=== PATIENT | male | born 1960 | race Caucasian/White ===

== ENCOUNTER 2017-09-10 17:47 | Observation (INO) ==
--- NOTE | 2017-09-10 18:44 | Emergency Department Note ---
Disposition Clinical Impression: Weakness, Hypoxia Lower extremity weakness Qualifiers: Laterality: bilateral Qualified Code(s): R29.898 - Other symptoms and signs involving the musculoskeletal system Disposition: Admitted As Inpatient Condition: Fair Time of Disposition: 22:00 General Adult HPI - General Chief complaint: ED General Medical Stated complaint: general weakness Time Seen by Provider: 09/10/17 17:52 Source: patient, family, EMS Mode of arrival: EMS Limitations: no limitations Nursing Notes Reviewed: Yes Vital Signs Reviewed: Yes - History of Present Illness HPI Narrative: 56-year-old male reported history of neuropathy in the lower extremities presents an emergency department via EMS for generalized weakness. States he has been feeling weak over the past 2 days. He denies any pain other than chronic back pain. He admits to falling 3 times total, once yesterday and twice today. His most recent one was prior to arrival around 1730 when he was outside doing yard work. It was hot outside today as well as yesterday when something similar occurred as well. He felt weak in the legs due to his neuropathy and tripped over some 2x4s falling off the porch roughly a foot- high and remember striking the back of his head. He is reporting some neck pain. Denies any loss of consciousness. Denies anticoagulant use. Denies any prodromal symptoms. Denies any lightheadedness, chest pain, shortness of breath or headache. He denies any dizziness or the room spinning. He reports having the flu earlier this year but also having the vaccination. He denies any fevers, cough or recent illness. Denies any abdominal pain, nausea or vomiting. Denies history of stroke. Reports history of diabetes that he beats. He does not take anything for. He also has high blood pressure. He is a natural path but takes oxycodone for his back. Denies history of cardiac ischemic disease. Pain Scale: 0 - Related Data Previous Rx's Medication Instructions Recorded Naproxen [Naprosyn] 500 mg PO BID #14 tablet 12/28/15 Allergies Allergy/AdvReac Type Severity Reaction Status Date / Time Penicillins Allergy Hives Verified 09/10/17 17:55 codeine AdvReac Gastrointestinal Verified 09/10/17 17:55 Upset All systems ED: reviewed and negative except as stated. Review of Systems: As Per HPI Constitutional: Reports: weakness. Denies: fever, chills ENT ED: Denies: congestion Cardiovascular: Denies: chest pain Respiratory: Denies: cough, dyspnea Gastrointestinal: Denies: abdominal pain Musculoskeletal: Reports: neck pain. Denies: back pain Neurological: Reports: weakness, numbness. Denies: headache Past Medical History - Past Medical History Attestation: Yes The following information was validated with the patient. Source: patient Medical history: Reports: GERD, hypertension Psychiatric history: Reports: no psych history - Social History Smoking Status: Never smoker Smokeless Tobacco Status: No Alcohol use: Reports: none Drug use: Reports: none Physical Exam - General Limitations: no limitations General appearance: alert, in no apparent distress - Head Head exam: atraumatic, normocephalic, normal inspection - Eye Eye exam: Present: normal appearance, PERRL, EOMI. Absent: nystagmus - ENT ENT exam: normal exam, normal oropharynx, mucous membranes moist - Neck Neck exam: Present: normal inspection, full ROM, trachea midline, tenderness. Absent: meningismus - Expanded Neck Exam Neck exam focused ED: Present: midline tenderness (Mid cervical spine) - Chest Chest inspection: Present: normal inspection, symmetric chest wall rise. Absent : tenderness - Respiratory Respiratory exam: Present: normal lung sounds bilaterally. Absent: respiratory distress, wheezes - Cardiovascular Cardiovascular exam: Present: regular rate, normal rhythm, normal heart sounds. Absent: systolic murmur, diastolic murmur - Abdominal Exam Abdominal exam: Present: soft, Non-Tender, normal bowel sounds. Absent: tenderness, distention, guarding, rebound, rigidity - Extremities Exam Extremities exam: Present: normal inspection, full ROM, normal capillary refill. Absent: tenderness, pedal edema - Neurological Exam Neurological exam: Present: alert, oriented X3, other (He has a hard time lifting his legs off the batterers arms off the bed. When I hold his arms up he is able to hold it slightly and interest down but does not slam on the bed. When I asked him to passively lift his arm he is unable to lift it greater than a few inches against gravity) - Expanded Neurological Exam Patient oriented to: Present: person, place, time Speech: Present: fluid speech Cranial nerves: EOM function (II, III, IV, ): Normal, facial sensation (V): Normal, facial palsy (VII): Normal, gag reflex (IX): Normal, spinal accessory function (XI): Normal, tongue deviation (XII): Normal Motor strength - LUE: 5/5 Motor strength - RUE: 5/5 Motor strength - LLE: 4/5 Motor strength - RLE: 4/5 DTR: patellar (L): 1+, patellar (R): 1+, Achilles tendon (L): 1+, Achilles tendon (R): 1+ Coma Scale Eye Opening: Spontaneous Coma Scale Motor Response: Obeys Commands Coma Scale Verbal Response: Oriented Coma Scale Total: 15 - Psychiatric Psychiatric exam: Present: flat affect - Skin Skin exam: Present: warm, dry, intact, normal color. Absent: rash, cyanosis, diaphoresis Course Course Narrative: Patient appears in no acute distress. He does appears slightly weak but this is not anything new. Sensation is normal down to his knees. He contributes sensation to his baseline neuropathy. He is able to wiggle his toes and then his knee without significant strength. He can lift his arms up but it will drop slowly to the table. He is awake alert and oriented. Heart is regular rate and rhythm. No murmurs auscultated. No murmurs with Valsalva maneuver. He reports some neck discomfort after the fall. He denies it anticoagulants used. At this time will obtain images of head and his neck. Will check some basic labs including troponin EKG. Will also obtain influenza swap. He does not report any recent viral illness. Consideration for possible Guillian Fisher Syndrome. Weak in bilateral lower extremities without true focal neuro deficit or distribution. CVA/TIA appears less likely. - Reevaluation(s) Reevaluation #1: Patient is seen at bedside moving his lower extremities spontaneously. However when asked upon examination he displays some extreme difficulty. He has gradually improved. This is less likely to be Guillian Fisher. Patient was initially hypoxic and require oxygen supplementation here. He denies any known lung disease. We absolutely titrated him off a he remains 93% on room air rest before he was initially 84%. Concern for Guillian Fisher less likely. We did initially discuss lumbar puncture to evaluated but patient refused. Review of his labs fairly unremarkable. Influenza negative. Mild leukocytosis. Troponin less than 0.03. CT of the chest to evaluate for pulmonary embolism to explain the hypoxia was performed it was unremarkable. There were some lung nodules that was made aware to the patient. EKG did not reveal any abnormal intervals, delta waves, Brugada pattern to suggest cardiac syncope. However given his weakness he will require admission for further evaluation and possibly further imaging. He continues to gradually improve. He has diminished reflexes bilaterally to lower extremities which are also symmetrical. Patient will be admitted for further monitoring and observation. He initially started the day with yardwork and now is unable to walk without significant difficulty. Impression is weakness, hypoxia and possible further workup for possible syncope. Time: 19:33 - Consultations Consultation #1: Patient accepted by on-call HOSPITALIST. No further orders at this time. Vital Signs Temperature 98.1 F 09/10/17 17:50 Pulse Rate 94 09/10/17 17:50 Respiratory Rate 16 09/10/17 17:50 Blood Pressure 137/82 09/10/17 17:50 O2 Sat by Pulse Oximetry 97 09/10/17 17:50 Temperature 97.8 F 09/10/17 23:55 Pulse Rate 75 09/10/17 23:55 Respiratory Rate 18 09/10/17 23:55 Blood Pressure 133/72 09/10/17 23:56 O2 Sat by Pulse Oximetry 96 09/10/17 23:55 Oxygen Delivery Oxygen Delivery Room Air Medical Decision Making - MDM Narrative Medical decision making narrative: Patient was discussed with my attending physician who agrees with ED management and final disposition. They independently evaluated the patient. Please refer to their attestation to this encounter for additional information. This note was generated by [employer] voice recognition software and as a result grammatical or spelling errors may occur using this program. - Medical Records Medical records reviewed: Yes I reviewed the patient's medical records. - Lab Data Lab results reviewed: Yes I reviewed the patient's lab results. Result diagrams: 09/10/17 18:36 09/10/17 18:36 Lab Results 09/10/17 09/10/17 09/10/17 Range/Units 18:36 18:36 19:57 WBC 12.0 H (4.3-11.1) K/mcL RBC 5.11 (4.19-5.50) M/mcL Hgb 15.0 (12.9-16.9) g/dL Hct 44.7 (37.5-50.1) % MCV 87.5 (83.0-100.0) fL MCH 29.4 (28.0-33.3) pg MCHC 33.6 (31.6-35.5) g/dL RDW 13.7 (11.5-14.5) % Plt Count 290 (140-400) K/mcL MPV 8.8 L (9.4-12.4) fL Immature Gran % 0.5 (0-4) % Seg Neutrophils % 67.7 % Lymphocytes % 21.7 % Monocytes % 7.2 % Eosinophils % 2.4 % Basophils % 0.5 % Neutrophils # 8.1 (1.6-8.9) K/mcL Lymphocytes # 2.6 (0.6-4.6) K/mcL Monocytes # 0.9 (0.0-1.3) K/mcL Eosinophils # 0.3 (0.0-0.6) K/mcL Basophils # 0.1 (0.0-0.2) K/mcL Sodium 143 (136-145) mEq/L Potassium 3.8 (3.5-5.1) mEq/L Chloride 107 (98-107) mEq/L Carbon Dioxide 28 (23-29) mEq/L BUN 29 H (6-20) mg/dL Creatinine 1.03 (0.70-1.30) mg/dL Est GFR ( Amer) > 60 (> 60) Est GFR (Non-Af Amer) > 60 (> 60) BUN/Creatinine Ratio 28 H (6-26) Glucose 121 H (70-105) mg/dL Calculated Osmolality 303 H (280-300) Calcium 9.6 (8.6-10.3) mg/dL Total Bilirubin 0.4 (0.3-1.0) mg/dL AST 33 (13-39) Units/L ALT 51 (7-52) Units/L Alkaline Phosphatase 63 (34-104) Units/L Troponin I < 0.03 (< 0.04) ng/mL Serum Total Protein 6.4 (6.4-8.9) g/dL Albumin 4.0 (3.5-5.7) g/dL Globulin 2.4 (2.4-3.5) g/dL Albumin/Globulin Ratio 1.7 (1.1-2.2) Urine Color Yellow (Yellow) Urine Clarity Clear (Clear) Urine pH 8.0 (5.0-8.0) pH Units Ur Specific [place] 1.030 H (1.010-1.025) Urine Protein Trace (Neg-Trace) mg/dL Urine Glucose (UA) Normal (Normal) mg/dL Urine Ketones Trace H (Negative) mg/dL Urine Blood Negative (Negative) Urine Nitrite Negative (Negative) Urine Bilirubin Negative (Negative) Urine Urobilinogen Normal (Normal) mg/dL Ur Leukocyte Esterase Negative (Negative) Urine Microscopic RBC 3-5 H (0-3) per hpf Urine Microscopic WBC 0-3 (0-3) per hpf Ur Squamous Epith Cells Moderate H (None-Few) per lpf Urine Bacteria None Seen (None-Few) per hpf Hyaline Casts None Seen (None-Few) per lpf Ur Culture Indicated? NO (NO) - Radiology Data Radiology results reviewed: Yes I reviewed the patient's radiology results. Chest X-Ray 09/10/17 17:56 IMPRESSION: Negative portable study. D/ / Jaquelin Watts Cha, MD / Jaquelin Watts Cha, MD Interpreting Provider: Jaquelin Watts Cha, MD Cervical Spine CT 09/10/17 18:27 IMPRESSION: No acute abnormality of the cervical spine. D/ / Jose L Mark MD / Jose L Mark MD Interpreting Provider: Jose L Mark MD Head CT 09/10/17 18:27 IMPRESSION: No acute intracranial abnormality. D/ / Jose L Mark MD / Jose L Mark MD Interpreting Provider: Jose L Mark MD Chest CTA 09/10/17 20:19 IMPRESSION: No evidence of pulmonary embolism or acute pulmonary abnormality. Mild emphysematous changes. Scattered noncalcified pulmonary nodules measure up to 3 mm. No required follow-up per guidelines below. RECOMMENDATIONS: Fleischner Society guidelines for follow-up and management of incidentally detected pulmonary nodules: Multiple Solid Nodules: Nodule size less than 6 mm In a low-risk patient, no routine follow-up. In a high-risk patient, optional CT at 12 months. - Low risk patients include individuals with minimal or absent history of smoking and other known risk factors. - High risk patients include individuals with a history or smoking or known risk factors. Radiology 2017 http://pubs.rsna.org/doi/full/10.1148/[email or web address] D/ / 09/10/2017 21:54:23 Jerry Hardy MD / mya Interpreting Provider: Jerry Hardy MD - EKG Data EKG #1 EKG attestation: Yes I reviewed and interpreted this EKG. Attestation Statement - Attestation Attestation: I, Jules Guadarrama, examined this patient and my medical decision-making was reviewed with the [employer] PR[employer] OPERATOR/PA/Advanced Practice Nurse/Resident Physician. I agree with the documented findings, disposition and treatment plan as described except to the extent set forth below. 56-year-old male presents emergency Department with generalized weakness. Patient states that this is occurred twice over the past few days. He states both times it is occurred while he was outside working in the yard. Patient does report having been in the sun, feeling overheated. He denied lateralization of his weakness. No history of stroke. Patient denied chest pain. He was mildly short of breath on initial evaluation and was satting 84% with EMS per the . Patient's O2 saturation has improved with observation emergency department. Patient states he initially had generalized weakness and was unable to lift the bilateral arms or legs. Patient is now moving all extremities after observation in the emergency department. Initial EKG did not show evidence of acute STEMI and had a normal sinus rhythm with a rate of 89. CTA of the chest was negative for PE. CT did show scattered noncalcified pulmonary nodules about which the patient was counseled. Patient comfortable with the plan for admission to the hospital for further evaluation of his weakness. Patient denies recent tick bite or recent illness. I discussed the possibility of pathology such as Guillain-Fisher and recommended a lumbar puncture to be performed. After discussion of risks and benefits the patient refused lumbar puncture. Patient will be admitted for further care and evaluation.
[2017-09-10 18:58] LABS: Basophils # 0.1 K/mcL (0.0-0.2); Basophils % 0.5 %; Eosinophils # 0.3 K/mcL (0.0-0.6); Eosinophils % 2.4 %; Hematocrit 44.7 % (37.5-50.1); Immature Granulocytes % 0.5 % (0-4); Lymphocytes # 2.6 K/mcL (0.6-4.6); Lymphocytes % 21.7 %; Mean Corpuscular HGB Conc 33.6 g/dL (31.6-35.5); Mean Corpuscular Hemoglobin 29.4 pg (28.0-33.3); Mean Corpuscular Volume 87.5 fL (83.0-100.0); Mean Platelet Volume 8.8 fL (9.4-12.4); Monocytes # 0.9 K/mcL (0.0-1.3); Monocytes % 7.2 %; Neutrophils # 8.1 K/mcL (1.6-8.9); Platelet Count 290 K/mcL (140-400); Red Blood Count 5.11 M/mcL (4.19-5.50); Red Cell Distribution Width 13.7 % (11.5-14.5); Segmented Neutrophils % 67.7 %
[2017-09-10 19:13] LABS: Alanine Aminotransferase 51 Units/L (7-52); Albumin/Globulin Ratio 1.7 (1.1-2.2); Alkaline Phosphatase 63 Units/L (34-104); Aspartate Amino Transferase 33 Units/L (13-39); BUN/Creatinine Ratio 28 (6-26); Bilirubin,Total 0.4 mg/dL (0.3-1.0); Blood Urea Nitrogen 29 mg/dL (6-20); Calcium 9.6 mg/dL (8.6-10.3); Carbon Dioxide 28 mEq/L (23-29); Chloride 107 mEq/L (98-107); Globulin 2.4 g/dL (2.4-3.5); Glucose 121 mg/dL (70-105); Osmolality,Calculated 303 (280-300); Potassium 3.8 mEq/L (3.5-5.1); Sodium 143 mEq/L (136-145); Total Protein 6.4 g/dL (6.4-8.9); Troponin I < 0.03 ng/mL (< 0.04); eGFR For African Americans > 60 (> 60); eGFR For Non-African Americans > 60 (> 60)
[2017-09-10 20:05] LABS: Bilirubin,Urine Negative (Negative); Blood,Urine Negative (Negative); Clarity,Urine Clear (Clear); Color,Urine Yellow (Yellow); Glucose,Urine (UA) Normal (Normal); Ketones,Urine Trace mg/dL (Negative); Leukocyte Esterase,Urine Negative (Negative); Nitrite,Urine Negative (Negative); Protein,Urine Trace mg/dL (Neg-Trace); Urobilinogen,Urine Normal (Normal)
[2017-09-10 20:07] LABS: Bacteria,Urine None Seen per hpf (None-Few); Hyaline Casts,Urine None Seen per lpf (None-Few); Squamous Epithelial Cell,Urine Moderate per lpf (None-Few); WBC,Urine 0-3 per hpf (0-3)
[2017-09-10] MEDS ORDERED: Isovue-370 500 ML INFUS..BTL IV ONE (20:19)
[2017-09-10] MEDS ORDERED: *HR* OxyCODONE Immed Rel 5 MG TABLET PO ONE (20:54)
[2017-09-10] MEDS ORDERED: Aspirin 81 MG TAB.CHEW PO ONE (22:50)
[2017-09-10] MEDS ORDERED: 0.9 % Sodium Chloride 1,000 ML IVC ONE (22:54)
[2017-09-11] MEDS ORDERED: Dextrose Gel 15 GM/37.5 ML TUBE PO PRN ×2 (00:24)
[2017-09-11] MEDS ORDERED: D5% in Water 1,000 ML IVC PRN (00:24)
[2017-09-11] MEDS ORDERED: *HR* Dextrose 50 % in Water (Syg) 50 ML SYRINGE IVP PRN (00:24)
[2017-09-11] MEDS ORDERED: traMADol 50 MG TABLET PO PRN (00:27)
[2017-09-11] MEDS ORDERED: Acetaminophen 325 MG TABLET PO PRN (00:27)
[2017-09-11] MEDS ORDERED: Ibuprofen 400 MG TABLET PO PRN (00:27)
[2017-09-11] MEDS ORDERED: Naloxone 0.4 MG/ML INJ IVP PRN (00:27)
[2017-09-11] MEDS ORDERED: 0.9 % Sodium Chloride 1,000 ML IVC SCH ×2 (00:30→01:30)
--- NOTE | 2017-09-11 01:35 | Internal Med History&Physical ---
Date of Encounter: 09/10/17 Time of Encounter: 23:47 Internal Medicine - H&P: HPI Chief complaint: "I couldn't get myself up" Admitted From: Emergency Dept Plans for Post Hospital Care: Home History of present illness: Mr. Peraza is a 56 year old male who presented to ED today with generalized weakness, including difficulty getting up to walk. He states that weakness started 2 days ago after he was outside in the heat the last 2 days burning trash. He had 2 near syncopal episodes. He thinks he may not have been drinking much fluids. He states: "maybe its time for me to stop doing all this hard work because I'm almost 57." He states that he is feeling better than when he came to ED. I ambulated the patient across the room, and he was not having any trouble at this time. There are no focal neurologic deficits. He states that the takes many "natural" supplements. He denies any cardiac history. Mother did have OK and CAD at older age. He has history of BLE neuropathy from previously uncontrolled Type II DM. He presently only takes cinnamon and follows diabetic diet for blood glucose control. At this time, he denies headache, chest pain, SOB, abdominal pain, nausea, vomiting, changes in bladder, changes in bowel, focal weakness, difficulty ambulating. I was asked to admit patient for observation for syncope workup. Past Med Surg Social Fam HX - Past Medical History Attestation: Yes The following information was validated with the patient. Medical history: diabetes, GERD, hyperlipidemia, hypertension, other (Chronic Lower Back Pain) Psychiatric history: no psych history - Past Surgical History Surgical History: non-contributory - Social History Smoking Status: Never smoker Smokeless Tobacco Status: No Alcohol use: none Drug use: none - Family History Mother Hx Family Cardiac Disorders: Yes (stents) Father Age at : 30 Cause of : brain bleed - Additional Family History Additional family history: Family history verified with patient. Internal Medicine - H&P: Meds Naproxen [Naprosyn] 500 mg PO BID #14 tablet 12/28/15 [Rx] Docusate Sodium [Dulcolax Stool Softener] 100 mg PO DAILY 09/11/17 [History] Ezetimibe [Zetia] 10 mg PO DAILY 09/11/17 [History] Furosemide [Lasix] 40 mg PO DAILY 09/11/17 [History] Lisinopril-HCTZ 20-12.5 [Prinzide 20-12.5] 1 each PO BID 09/11/17 [History] Omeprazole [PriLOSEC] 20 mg PO DAILY 09/11/17 [History] OxyCODONE Immed Rel [Roxicodone 5 MG] 5 mg PO Q4HR PRN 09/11/17 [History] Potassium Chloride [Klor-Con 10] 20 meq PO DAILY 09/11/17 [History] Tamsulosin HCl [Flomax] 0.4 mg PO DAILY 09/11/17 [History] amLODIPine [Norvasc] 5 mg PO DAILY 09/11/17 [History] diazePAM [Valium] 10 mg PO TID 09/11/17 [History] 3 Allergy/AdvReac Type Severity Reaction Status Date / Time Penicillins Allergy Hives Verified 09/10/17 17:55 codeine AdvReac Gastrointestinal Verified 09/10/17 17:55 Upset All Systems PM: A 10-system review of systems was performed and is negative for pertinent findings except as documented above in the HPI. - Constitutional Vitals: Temp Pulse Resp BP Pulse Ox 97.8 F 75 18 133/72 96 09/10/17 23:55 09/10/17 23:55 09/10/17 23:55 09/10/17 23:56 09/10/17 23:55 General appearance: Present: cooperative, A&O X 3, pleasant, no acute distress, obese, answers questions appropriately - Head Head exam: Present: atraumatic, normal inspection, normocephalic - Eye Eye exam: Present: EOMI, normal appearance, PERRL. Absent: conjunctival injection, nystagmus, scleral icterus - ENT ENT exam: Present: mucous membranes moist, normal external ear exam, normal oropharynx - Neck Neck exam general surgery: Present: supple, trachea midline. Absent: lymphadenopathy, tenderness, thyromegaly - Respiratory Respiratory exam: Present: CTAB. Absent: accessory muscle use, rales, rhonchi, wheezes Additional comments: Normal WOB - Cardiovascular Cardiovascular exam: Present: RRR, +S1, +S2. Absent: diastolic murmur, gallop, rubs, systolic murmur Additional comments: No BLE edema - GI/Abdominal GI/Abdominal exam: Present: normal bowel sounds, soft. Absent: distended, hepatomegaly, mass, splenomegaly, tenderness - Neurological Exam Neurological exam: Present: alert, CN II-XII intact, normal gait, oriented X3, no focal deficits, strengths equal and symetr throughout. Absent: motor sensory deficit, facial droop, speech deficit - Psychiatric Psychiatric exam: Present: normal affect, normal mood. Absent: agitated, anxious, depressed - Skin Skin exam: Present: dry, intact, warm. Absent: cyanosis, rash Internal Med - H&P Results - Labs CBC & Chem 7: 09/10/17 18:36 09/10/17 18:36 - Assessment and plan (1) Near syncope Current Visit: Yes Status: Acute Assessment and plan: Likely secondary to heat exhaustion/dehydration. Cardiac workup in ED negative. No focal neurological deficits at this time. He is already up and able to walk in room now. We will admit for observation. Will continue to hydrate gently with IVF for dehydration. Recheck labs in AM. Will order ECHO and carotid U/S for AM. He states that he takes alot of "natural" supplements; will obtain list of these and evaluate drug effects. Will perform neurochecks Q4H, and consider MRI brain if he starts having neurological symptoms. He does have BLE neuropathy, but has been better recently with regard to this. (2) Heat causing syncope Current Visit: Yes Status: Acute Assessment and plan: Management as per above. Qualifiers: Encounter type: initial encounter Qualified Code(s): T67.1XXA - Heat syncope, initial encounter (3) Dehydration Current Visit: Yes Status: Acute Assessment and plan: Management as per above. (4) Generalized weakness Current Visit: Yes Status: Acute Assessment and plan: Management as per above. PT/OT have been consulted. (5) Hypoxemia Current Visit: Yes Status: Resolved Assessment and plan: Had low O2 saturation of 84% in ED. Patient has no respiratory history. No SOB. Continue supplemental O2 for now; wean as tolerated to RA. (6) HTN (hypertension) Current Visit: Yes Status: Chronic Assessment and plan: Continue home medications. Qualifiers: Hypertension type: essential hypertension Qualified Code(s): I10 - Essential (primary) hypertension (7) HLD (hyperlipidemia) Current Visit: Yes Status: Chronic Assessment and plan: Continue home medications. Qualifiers: Hyperlipidemia type: mixed hyperlipidemia Qualified Code(s): E78.2 - Mixed hyperlipidemia (8) GERD (gastroesophageal reflux disease) Current Visit: Yes Status: Chronic Assessment and plan: Continue home medications. Qualifiers: Esophagitis presence: esophagitis presence not specified Qualified Code(s) : K21.9 - Gastro-esophageal reflux disease without esophagitis (9) Chronic lower back pain Current Visit: Yes Status: Chronic Assessment and plan: Continue home pain medications. Qualifiers: Back pain laterality: unspecified Sciatica presence: unspecified whether sciatica present Qualified Code(s): M54.5 - Low back pain; G89.29 - Other chronic pain (10) Type 2 diabetes mellitus with diabetic polyneuropathy Current Visit: Yes Status: Chronic Assessment and plan: Patient reportedly only takes cinnamon for his DM. Blood glucose in ED borderline normal. Has long-standing BLE neuropathy. Will start accuchecks and low dose SSI QID AC/HS for now, but if blood glucose continues to look good , we can discontinue these orders. Qualifiers: Diabetes mellitus assisted insulin use: without assisted use Qualified Code(s): E11.42 - Type 2 diabetes mellitus with diabetic polyneuropathy (11) DVT prophylaxis Current Visit: Yes Status: Acute Assessment and plan: Start SCDs and lovenox 40 mg SQ QD. - Time Spent With Patient Total time spent is greater than 50% in coordination of care (as documented) at patient's floor/unit and/or counseling patient: less than 15 minutes
[2017-09-11] MEDS: diazePAM 10 MG TABLET PO SCH ×4 (01:38→22:15)
[2017-09-11] MEDS: *HR* OxyCODONE Immed Rel 5 MG TABLET PO PRN ×4 (01:39→22:15)
[2017-09-11] MEDS: Insulin LISPRO 300 UNITS/3 ML VIAL SQ SCH ×5 (01:42→22:16)
[2017-09-11] MEDS: Lisinopril-HCTZ 20-12.5mg TABLET PO SCH ×3 (01:42→22:16)
[2017-09-11] MEDS: *HR* Enoxaparin 40 MG/0.4 ML SYRINGE SQ SCH (05:42)
[2017-09-11 06:51] LABS: Basophils # 0.1 K/mcL (0.0-0.2); Basophils % 0.7 %; Eosinophils # 0.5 K/mcL (0.0-0.6); Eosinophils % 5.1 %; Hematocrit 41.3 % (37.5-50.1); Hemoglobin 13.7 g/dL (12.9-16.9); Immature Granulocytes % 0.6 % (0-4); Lymphocytes # 3.4 K/mcL (0.6-4.6); Lymphocytes % 34.2 %; Mean Corpuscular HGB Conc 33.2 g/dL (31.6-35.5); Mean Corpuscular Hemoglobin 30.3 pg (28.0-33.3); Mean Corpuscular Volume 91.4 fL (83.0-100.0); Mean Platelet Volume 8.9 fL (9.4-12.4); Monocytes # 0.8 K/mcL (0.0-1.3); Monocytes % 7.7 %; Neutrophils # 5.1 K/mcL (1.6-8.9); Platelet Count 240 K/mcL (140-400); Red Blood Count 4.52 M/mcL (4.19-5.50); Red Cell Distribution Width 14.2 % (11.5-14.5); Segmented Neutrophils % 51.7 %
[2017-09-11 07:11] LABS: Thyroid Stimulating Hormone 2.395 mcIU/mL (0.340-5.600)
[2017-09-11 08:12] LABS: BUN/Creatinine Ratio 27 (6-26); Blood Urea Nitrogen 25 mg/dL (6-20); Calcium 8.8 mg/dL (8.6-10.3); Carbon Dioxide 27 mEq/L (23-29); Chloride 108 mEq/L (98-107); Chol/HDL Ratio 3.6 (0-4.9); Cholesterol 135 mg/dL (< 200); Glucose 91 mg/dL (70-105); HDL Cholesterol 37 mg/dL (40-59); LDL Cholesterol,Calculated 73 mg/dL (0-99); Osmolality,Calculated 296 (280-300); Sodium 141 mEq/L (136-145); Triglycerides 124 mg/dL (< 150); eGFR For African Americans > 60 (> 60); eGFR For Non-African Americans > 60 (> 60)
[2017-09-11 08:13] LABS: Estimated Average Glucose 126 mg/dl
[2017-09-11] MEDS: amLODIPine 5 MG TABLET PO SCH (08:21)
--- NOTE | 2017-09-11 13:56 | Electrocardiograph Report ---
[place] [id number] Test Date: 2017-09-10 Pat Name: Kavon Peraza Department: 102 Room: 3B46 Gender: M Document Review Attorney: Jere : 1960 Requested By: Jules Guadarrama Order Number: [id number] Reading MD: Brooke Yee Measurements Intervals [place] Rate: 89 P: 51 MD: 185 QRS: -38 QRSD: 104 T: 48 QT: 333 QTc: 380 Interpretive Statements SINUS RHYTHM LEFT AXIS DEVIATION [QRS AXIS < -30] Electronically Signed On 09-11-2017 13:54:49 EDT by Brooke Yee
--- NOTE | 2017-09-11 16:01 | Internal Med Progress Note ---
Date of Encounter: 09/11/17 Time of Encounter: 16:08 - Assessment and plan (1) Near syncope Current Visit: Yes Status: Acute Assessment and plan: presented after 3 near syncopal events resulting in falls on day of arrival. Head CT nonacute. C-spine CT nonacute. Chest CTA negative for pulmonary embolism. Remained neurologically intact. Suspect secondary to dehydration as all 3 episodes occurred when he was working outside in the hot sun. Symptoms improved with supportive care, IV hydration. Echo, carotid Dopplers and ortho BPs pending. (2) Heat causing syncope Current Visit: Yes Status: Acute Assessment and plan: Management as per above. Qualifiers: Encounter type: initial encounter Qualified Code(s): T67.1XXA - Heat syncope, initial encounter (3) Dehydration Current Visit: Yes Status: Acute Assessment and plan: Management as per above. (4) Hypoxemia Current Visit: Yes Status: Resolved Assessment and plan: Had low O2 saturation of 84% in ED. Patient has no respiratory history. No SOB. CXR nonacute. Adequately oxygenating on room air on 09/11 exam (5) Generalized weakness Current Visit: Yes Status: Acute Assessment and plan: Management as per above. Evaluated by PT/OT who recommended discharged home in medically stable. No further PT/OT needs apparent. (6) HTN (hypertension) Current Visit: Yes Status: Chronic Assessment and plan: per hx. BP controlled. Cont home BP medications. Monitor BP and titrate PRN Qualifiers: Hypertension type: essential hypertension Qualified Code(s): I10 - Essential (primary) hypertension (7) HLD (hyperlipidemia) Current Visit: Yes Status: Chronic Assessment and plan: per hx. Cont home statin Qualifiers: Hyperlipidemia type: mixed hyperlipidemia Qualified Code(s): E78.2 - Mixed hyperlipidemia (8) GERD (gastroesophageal reflux disease) Current Visit: Yes Status: Chronic Assessment and plan: per hx. Continue home medications. Qualifiers: Esophagitis presence: esophagitis presence not specified Qualified Code(s) : K21.9 - Gastro-esophageal reflux disease without esophagitis (9) Chronic lower back pain Current Visit: Yes Status: Chronic Assessment and plan: per hx. Cont home pain medications. Qualifiers: Back pain laterality: unspecified Sciatica presence: unspecified whether sciatica present Qualified Code(s): M54.5 - Low back pain; G89.29 - Other chronic pain (10) Type 2 diabetes mellitus with diabetic polyneuropathy Current Visit: Yes Status: Chronic Assessment and plan: per hx. Hgb A1c 6%. Diet controlled and only takes cinnamon for his DM. Has long -standing BLE neuropathy. Cont low dose SSI. Monitor blood sugars and titrate PRN. Blood sugars controlled on 09/11 exam Qualifiers: Diabetes mellitus moth exterminator insulin use: without moth exterminator use Qualified Code(s): E11.42 - Type 2 diabetes mellitus with diabetic polyneuropathy (11) DVT prophylaxis Current Visit: Yes Status: Acute Assessment and plan: lovenox - Time Spent With Patient Total time spent is greater than 50% in coordination of care (as documented) at patient's floor/unit and/or counseling patient: - Subjective Interval history: Seen and examined at bedside. Patient is new to me, information obtained from chart review and patient report. Still has some generalized weakness but overall improved. He thinks he needs another day in the hospital and will be ready to discharge tomorrow. No no near syncope recurrence while in the hospital. No blurred or double vision. No palpitations. - Constitutional Vitals: Temp Pulse Resp BP Pulse Ox 98.4 F 74 20 106/71 95 09/11/17 15:10 09/11/17 15:10 09/11/17 15:10 09/11/17 15:10 09/11/17 15:10 General appearance: Present: cooperative, A&O X 3, morbidly obese, pleasant, no acute distress, obese, answers questions appropriately - Head Head exam: Present: atraumatic, normocephalic - Eye Eye exam: Present: PERRL, conjuntiva pink, sclera anicteric Pupils: Present: PERRL - Neck Neck exam general surgery: Present: supple, trachea midline. Absent: lymphadenopathy - Respiratory Respiratory exam: Present: CTAB. Absent: accessory muscle use, rales, rhonchi, wheezes - Cardiovascular Cardiovascular exam: Present: RRR, +S1, +S2. Absent: diastolic murmur, gallop, rubs, systolic murmur - GI/Abdominal GI/Abdominal exam: Present: normal bowel sounds, soft, no peritoneal signs. Absent: distended, tenderness - Extremities Exam Extremities exam: Present: warm, radial pulses palpable and symmetrical. Absent : calf tenderness, cyanotic, pedal edema - Neurological Exam Neurological exam: Present: CN II-XII intact, oriented X3, no focal deficits. Absent: pronater drift, facial droop, speech deficit - Skin Skin exam: Present: dry, intact Internal Medicine: Result - Labs CBC & Chem 7: 09/11/17 05:41 09/11/17 05:41 Labs: Short CBC 09/11/17 Range/Units 05:41 WBC 9.8 (4.3-11.1) K/mcL Hgb 13.7 (12.9-16.9) g/dL Hct 41.3 (37.5-50.1) % Plt Count 240 (140-400) K/mcL Neutrophils # 5.1 (1.6-8.9) K/mcL BMP 09/11/17 05:41 Sodium 141 Potassium 4.0 Chloride 108 H Carbon Dioxide 27 BUN 25 H Creatinine 0.92 Glucose 91 Calcium 8.8 Consult Discharge Plan - Plan Referrals: Tanner Weber DO [Primary Care Provider] -
[2017-09-11] MEDS ORDERED: Perflutren Lipid Microsphere 1.3 ML in 0.9 % Sodium Chloride 8.7 ML IVP ONE (18:59)
[2017-09-12] MEDS: *HR* Enoxaparin 40 MG/0.4 ML SYRINGE SQ SCH (05:31)
[2017-09-12] MEDS: Insulin LISPRO 300 UNITS/3 ML VIAL SQ SCH ×4 (07:52→20:22)
[2017-09-12] MEDS: amLODIPine 5 MG TABLET PO SCH (07:52)
[2017-09-12] MEDS: Lisinopril-HCTZ 20-12.5mg TABLET PO SCH ×2 (07:52→20:18)
[2017-09-12] MEDS: diazePAM 10 MG TABLET PO SCH ×3 (08:29→20:19)
[2017-09-12] MEDS: *HR* OxyCODONE Immed Rel 5 MG TABLET PO PRN ×4 (08:29→20:18)
--- NOTE | 2017-09-12 18:24 | Internal Med Progress Note ---
Date of Encounter: 09/12/17 Time of Encounter: 10:25 - Assessment and plan (1) Near syncope Current Visit: Yes Status: Acute Assessment and plan: Patient reports that he is feeling better. Orthostatic vital signs are negative. Head CT is negative. Chest CTA negative for PE or acute pulmonary abnormality, there are mild emphysematous changes and scattered noncalcified pulmonary nodules measuring up to 3 mm there is no required follow-up. Preliminary carotid duplex study shows nonstenotic plaque in both bifurcations and 60-79% stenosis in both proximal ICA. Patient had limited echocardiogram shows LVEF of 65% and normal RV structure and function. All wall segments showed normal motion. Near syncope/syncope likely due to overheating dehydration. Labs are stable and within normal limits and patient reports that he is feeling better. Continue telemetry If patient remains stable overnight, he will most likely discharge home in the morning. Ambulate with assistance. Fall precautions. p (2) Heat causing syncope Current Visit: Yes Status: Acute Assessment and plan: Plan as above. Patient is eating and drinking well, no IV fluids necessary at this time. Qualifiers: Encounter type: initial encounter Qualified Code(s): T67.1XXA - Heat syncope, initial encounter (3) Dehydration Current Visit: Yes Status: Acute Assessment and plan: Resolved. Plan as above. (4) Hypoxemia Current Visit: Yes Status: Resolved Assessment and plan: Patient is on room air, maintain sats greater than 92%. Lungs are clear and diminished, patient is in no distress. (5) Generalized weakness Current Visit: Yes Status: Acute Assessment and plan: Patient was able to ambulate on the unit today. Stating that he feels better. PT/OT identified needs and patient will be ready to be discharged home in the morning. Pt states that he became hot after walking and was not ready to go home since he has no air conditioning at home. Continue to monitor for safety and fall precautions. (6) HTN (hypertension) Current Visit: Yes Status: Chronic Assessment and plan: Chronic. Continue home medications. Well controlled. Qualifiers: Hypertension type: essential hypertension Qualified Code(s): I10 - Essential (primary) hypertension (7) GERD (gastroesophageal reflux disease) Current Visit: Yes Status: Chronic Assessment and plan: Chronic. Pt does not appear to be on any medications at home. Denies increase in symptoms. Qualifiers: Esophagitis presence: esophagitis presence not specified Qualified Code(s) : K21.9 - Gastro-esophageal reflux disease without esophagitis (8) Chronic lower back pain Current Visit: Yes Status: Chronic Assessment and plan: Chronic. Continue home medications. Patient has oxycodone 5 mg by mouth every 4 hours as needed for back pain. Qualifiers: Back pain laterality: unspecified Sciatica presence: unspecified whether sciatica present Qualified Code(s): M54.5 - Low back pain; G89.29 - Other chronic pain (9) Type 2 diabetes mellitus with diabetic polyneuropathy Current Visit: Yes Status: Chronic Assessment and plan: Chronic Hgb A1c 6%. Diet controlled and only takes cinnamon for his DM. Continue SSI, accuchecks achs, diabetic diet. Qualifiers: Diabetes mellitus scheduling administrator insulin use: without long-term use Qualified Code(s): E11.42 - Type 2 diabetes mellitus with diabetic polyneuropathy (10) DVT prophylaxis Current Visit: Yes Status: Acute Assessment and plan: Lovenox subcutaneous. Patient is ambulatory on the unit. - Time Spent With Patient Total time spent is greater than 50% in coordination of care (as documented) at patient's floor/unit and/or counseling patient: less than 15 minutes - Subjective Interval history: Patient was seen and assessed the bedside at 10:25 AM. He is alert, awake, oriented. Patient reports 3 syncopal episodes at home, states that he is feeling better today. It appears that all testing is negative at this time. Patient reports that he "lives off the grid" at home and it timmons his trash, heats his water in the sun for a bath. I encouraged patient to get up and move around today, he ambulated in the hallway and reported he was too hot to go home since he does not have air conditioning. He reports he has a family member who is out of state he will be home soon. Patient will discharge in the morning. He denies any headache, blurred vision, neck pain, she shortness of breath or chest pain. He denies abdominal pain, nausea, vomiting, diarrhea. There is no peripheral edema. - Constitutional Vitals: Temp Pulse Resp BP Pulse Ox 97.7 F 78 18 105/67 92 09/12/17 15:44 09/12/17 15:44 09/12/17 15:44 09/12/17 15:44 09/12/17 15:44 General appearance: Present: cooperative, A&O X 3, morbidly obese, pleasant, no acute distress, obese, answers questions appropriately - Head Head exam: Present: atraumatic, normal inspection, normocephalic - Eye Eye exam: Present: normal appearance, conjuntiva pink, sclera anicteric - Neck Neck exam general surgery: Present: normal inspection, supple, trachea midline. Absent: lymphadenopathy, tenderness - Respiratory Respiratory exam: Present: decreased breath sounds, CTAB. Absent: accessory muscle use, chest wall tenderness, rales, respiratory distress, rhonchi, wheezes - Cardiovascular Cardiovascular exam: Present: RRR, +S1, +S2. Absent: diastolic murmur, gallop, rubs, systolic murmur, tachycardia - GI/Abdominal GI/Abdominal exam: Present: normal bowel sounds, soft. Absent: distended, tenderness - Extremities Exam Extremities exam: Present: normal capillary refill, normal inspection, warm, radial pulses palpable and symmetrical. Absent: calf tenderness, cyanotic, pedal edema, tenderness - Neurological Exam Neurological exam: Present: alert, oriented X3, no focal deficits. Absent: altered, facial droop, speech deficit - Skin Skin exam: Present: dry, intact, normal color, warm. Absent: rash Internal Medicine: Result - Labs CBC & Chem 7: 09/11/17 05:41 09/11/17 05:41 - Impressions Impressions Echocardiogram Limited Views 09/11/17 00:26 Impressions: LVEF 65%. Normal right ventricular structure and function. Left Ventricular Wall Motion: Rest Echo Findings All wall segments showed normal motion. Findings: Study Quality * Technically adequate exam. ECG Findings * Normal sinus rhythm. Left Ventricle * LVEF 65%. * Normal LV chamber size, wall thickness and function. Right Ventricle * Normal right ventricular structure and function. Aorta * Normally sized aortic root. Pericardium * There is no pericardial effusion present. IVC * The IVC is not dilated. Consult Discharge Plan - Plan Referrals: Tanner Weber DO [Primary Care Provider] - 09/19/17 12:00 pm
[2017-09-13] MEDS: *HR* OxyCODONE Immed Rel 5 MG TABLET PO PRN ×4 (00:10→14:34)
[2017-09-13] MEDS: *HR* Enoxaparin 40 MG/0.4 ML SYRINGE SQ SCH (06:04)
[2017-09-13] MEDS: Insulin LISPRO 300 UNITS/3 ML VIAL SQ SCH ×2 (08:41→11:43)
[2017-09-13] MEDS: Lisinopril-HCTZ 20-12.5mg TABLET PO SCH (09:15)
[2017-09-13] MEDS: amLODIPine 5 MG TABLET PO SCH (09:15)
[2017-09-13] MEDS: diazePAM 10 MG TABLET PO SCH ×2 (09:15→14:33)
[2017-09-13 15:47] VITALS: BP 137/87
--- NOTE | 2017-09-13 17:36 | Discharge Summary ---
- NOTES TO OUTPATIENT PROVIDER Notes to Outpatient Provider: Pt was admitted for syncopal episodes at home, likely due to overexposure to heat and mild dehydration. Pt has improved with IVF. Bilateral carotids with 60-79% stenosis. Echo showed pEF with normal wall segment motion. Head CT was negative. Chest CTA with scattered, noncalcified pulmonary nodules. No follow-up required. No changes were made to patient's medications. Date of Encounter: 09/13/17 Time of Encounter: 13:05 - Discharge Diagnosis (1) Near syncope Priority: Secondary Status: Acute Assessment and Plan: Patient reports that he is feeling better. No further episodes. Gait is steady and pt denies dizziness or lightheadedness. (2) Heat causing syncope Priority: Secondary Status: Acute Assessment and Plan: Plan as above. Patient is eating and drinking well, no IV fluids necessary at this time. Pt has verbalized understanding of proper hydration and seeking cool surroundings in the heat. Qualifiers: Encounter type: initial encounter Qualified Code(s): T67.1XXA - Heat syncope, initial encounter (3) Dehydration Priority: Secondary Status: Acute Assessment and Plan: Resolved. Pt is eating and drinking well. Labs are stable. (4) Hypoxemia Priority: Secondary Status: Resolved Assessment and Plan: Patient is on room air, no supplemental 02 required. Lungs are clear and diminished, patient is in no distress. (5) Generalized weakness Priority: Secondary Status: Acute Assessment and Plan: Patient was able to ambulate on the unit today. Gait steady. Pt reports that he feels better and that the extra night helped him. PT/OT identified no needs. (6) HTN (hypertension) Priority: Secondary Status: Chronic Assessment and Plan: Chronic. Continue home medications. Qualifiers: Hypertension type: essential hypertension Qualified Code(s): I10 - Essential (primary) hypertension (7) GERD (gastroesophageal reflux disease) Priority: Secondary Status: Chronic Assessment and Plan: Chronic. Denies increase in symptoms. Encourage smaller, more frequent meals without spicy, fatty, foods, decrease caffeine. Qualifiers: Esophagitis presence: esophagitis presence not specified Qualified Code(s) : K21.9 - Gastro-esophageal reflux disease without esophagitis (8) Chronic lower back pain Priority: Secondary Status: Chronic Assessment and Plan: Chronic. Continue home medications. Qualifiers: Back pain laterality: unspecified Sciatica presence: unspecified whether sciatica present Qualified Code(s): M54.5 - Low back pain; G89.29 - Other chronic pain (9) Type 2 diabetes mellitus with diabetic polyneuropathy Priority: Secondary Status: Chronic Assessment and Plan: Chronic. Hgb A1c 6%. Diet controlled and only takes cinnamon for his DM. Continue home medications and accucheck regimen. Qualifiers: Diabetes mellitus rn long term care insulin use: without rn long term care use Qualified Code(s): E11.42 - Type 2 diabetes mellitus with diabetic polyneuropathy (10) DVT prophylaxis Priority: Secondary Status: Acute Assessment and Plan: Lovenox subcutaneous. Patient is ambulatory. Hospital course: Mr. Peraza is a 56 year old male who presented to the emergency department on day of admission with generalized weakness, 3 syncopal episodes 2 days prior to arrival. He reports he been outside for 2 days burning trash. Patient reports that each time he has syncopal episode, he became increasingly more weak, the last time he can get up to walk. Patient was neurologically intact and his physical exam is unremarkable. Patient reports that he had not been drinking water and had not sought any [facility]. He reports that he lives off the [facility] lack of electricity at home. Patient is improved steadily over the course of his visit. Orthostatic vital signs were negative, head CT was negative, chest CTA negative for PE acute pulmonary abnormality. There are mild emphysematous changes and scattered noncalcified pulmonary nodules measuring up to 3 mm, there is no required follow -up for that. Preliminary carotid duplex study shows nonstenotic plaque in both bifurcations and 60-70% stenosis in both proximal ICAs. Limited echo showed LVEF of 65% and normal RV structure and function with normal wall segment motion. Her syncope/syncope likely due to overheating and mild dehydration. Patient's labs were stable and within normal limits. Vitals are stable and within normal limits. Patient was not requiring supplemental oxygen. He is able to ambulate with a steady gait and states that he feels better. Patient is appropriate for discharge. Discharge discussed with: patient, family - Time Spent with Patient Total time spent providing and/or coordinating discharge services: Less than 30 minutes - Discharge Medications Home Medications: Docusate Sodium [Dulcolax Stool Softener] 100 mg PO DAILY 09/11/17 [History] Ezetimibe [Zetia] 10 mg PO DAILY 09/11/17 [History] Furosemide [Lasix] 40 mg PO DAILY 09/11/17 [History] Lisinopril/Hydrochlorothiazide [Zestoretic 20-25 mg Tablet] 1 tab PO DAILY 09/11 [History] Omeprazole [PriLOSEC] 20 mg PO DAILY 09/11/17 [History] OxyCODONE Immed Rel [Roxicodone 5 MG] 5 mg PO Q4HR PRN 09/11/17 [History] Potassium Chloride [Klor-Con 10] 20 meq PO DAILY 09/11/17 [History] Tamsulosin HCl [Flomax] 0.4 mg PO DAILY 09/11/17 [History] amLODIPine [Norvasc] 5 mg PO DAILY 09/11/17 [History] diazePAM [Valium] 10 mg PO TID 09/11/17 [History] Naloxone [Narcan] 0.4 mg IVP Q2MIN PRN inj 09/13/17 [Rx] Naproxen [Naprosyn] 500 mg PO BID tablet 09/13/17 [Rx] Patient Taking Own Medication 1 each PO DAILY each 09/13/17 [Rx] Allergies/Adverse Reactions: 3 Allergy/AdvReac Type Severity Reaction Status Date / Time Penicillins Allergy Hives Verified 09/10/17 17:55 codeine AdvReac Gastrointestinal Verified 09/10/17 17:55 Upset Date of admission: 09/10/17 23:03 Primary care physician: Cari Carrillo Consults: 09/11/17 00:29 Consult to Occupational Therapy [CONS] Routine Comment: Evaluate, develop and implement POC Reason for Consult: Generalized Weakness Does patient have active BEDREST order?: No Is patient medically & hemodynamically stable?: Yes Patient assessed for mobility or mobilized this visit?: No Consult to Physical Therapy [CONS] Routine Comment: Evaluate, develop and implement POC Reason for Consult: Generalized Weakness Does patient have active BEDREST order?: No Is patient medically & hemodynamically stable?: Yes Patient assessed for mobility or mobilized this visit?: No Discharging clinician: Renate Nath Anticipated date of discharge: 09/13/17 - Constitutional Vitals: Temp Pulse Resp BP Pulse Ox 98.0 F 88 17 137/87 90 09/13/17 15:46 09/13/17 15:46 09/13/17 15:46 09/13/17 15:46 09/13/17 15:46 General appearance: Present: cooperative, A&O X 3, morbidly obese, pleasant, no acute distress, obese, answers questions appropriately - Head Head exam: Present: atraumatic, normal inspection, normocephalic - Eye Eye exam: Present: normal appearance, conjuntiva pink, sclera anicteric - Neck Neck exam general surgery: Present: supple, trachea midline. Absent: lymphadenopathy, tenderness - Respiratory Respiratory exam: Present: CTAB. Absent: accessory muscle use, rales, rhonchi, wheezes - Cardiovascular Cardiovascular exam: Present: RRR, +S1, +S2. Absent: diastolic murmur, gallop, rubs, systolic murmur - GI/Abdominal GI/Abdominal exam: Present: distended, soft, no peritoneal signs. Absent: hepatomegaly, tenderness - Extremities Exam Extremities exam: Present: normal capillary refill, normal inspection, warm, radial pulses palpable and symmetrical. Absent: calf tenderness, cyanotic, pedal edema, tenderness - Neurological Exam Neurological exam: Present: alert, oriented X3, no focal deficits. Absent: facial droop, speech deficit - Skin Skin exam: Present: dry, intact, normal color, warm. Absent: rash - Patient Status Disposition: Home, Self-Care Condition: Good Functional capacity at discharge: independent ambulation Overall status at discharge: patient is progressing back to baseline - Discharge Instructions Follow Up With: Tanner Weber DO [Primary Care Provider] - 09/19/17 12:00 pm Additional Instructions: Please folllow up with PCP in the next 7-10 days Return to your normal diet and activities as tolerated. Return to the ER as needed for any other problems or concerns, or if your symptoms return or worsen. Take your medications as directed. Make sure that if you are outside that you stay hydrated with water or other electrolyte replacement drink, and go somewhere where you can get cool every hour. - Diet and Activity Activity: increase activity as tolerated Diet: low fat, low cholesterol
== END 2017-09-13 19:29 | disposition home or self-care (01) ==
LOC: EMEROO 17:47 → 3BNU 17:47
PROVIDERS: ADMIT Internal Medicine; ATTEND Internal Medicine